=== PATIENT | female | born 1980 | race Caucasian/White ===

== ENCOUNTER 2017-03-27 18:27 | Emergency (ER) | payer OTHER ==
[2017-03-27 19:07] LABS: BASO # 0.1 10_X3_uL (0.0-0.1); BASO % 0.4 % (0.1-1.2); EOS # 0.1 10_X3_uL (0.0-0.4); EOS % 0.7 % (0.7-5.8); GRAN # 8.9 10_X3_uL (1.6-6.1); GRAN % 77.6 % (34.0-71.1); HEMATOCRIT 34.6 % (34-45); HEMOGLOBIN 11.7 g/dL (11.2-15.7); LYMPH # 1.5 10_X3_uL (1.2-3.7); LYMPH % 13.4 % (19.3-51.7); MEAN CORPUSCULAR HEMOGLOBIN 29.8 pg (27.0-33.0); MEAN CORPUSCULAR HGB CONC 33.8 g/dL (32.0-36.0); MEAN PLATELET VOLUME 9.6 fl (7.5-11.5); MONO # 0.9 10_X3_uL (0.2-0.9); MONO % 7.9 % (4.7-12.5); PLATELET COUNT 390 x10_3/uL (182-369); RED BLOOD COUNT 3.93 x10_6/uL (3.9-5.2); RED CELL DISTRIBUTION WIDTH 13.1 % (11.7-14.4); WHITE BLOOD COUNT 11.5 x10_3/uL (4.0-10.0)
[2017-03-27 19:25] LABS: ALKALINE PHOSPHATASE 70 U/L (50-136); ALT/SGPT 16 U/L (3.5-33.9); AMYLASE 37 U/L (15.62-74.58); AST/SGOT 13 U/L (7.04-26.96); BLOOD UREA NITROGEN 9 mg/dL (7-18); CALCIUM 9.3 mg/dL (8.7-10.7); CARBON DIOXIDE 24 mmol/L (21-32); CREATINE KINASE 79 U/L (21-215); CREATININE 0.6 mg/dL (0.6-1.3); GLUCOSE,RANDOM 129 mg/dL (70-99); LIPASE 30 U/L (6.75-60.75); POTASSIUM 3.7 mmol/L (3.5-5.1); SODIUM 134 mmol/L (136-145); TOTAL PROTEIN 7.2 gm/dL (6.4-8.2)
[2017-03-27 19:26] LABS: BILIRUBIN,TOTAL < 0.15 mg/dL (0.0-1.0)
== END 2017-03-27 20:32 | disposition home or self-care (01) ==
LOC: ER 18:27
PROVIDERS: Internal Medicine
DX: R42 Dizziness and giddiness (principal); R10.9 Unspecified abdominal pain; R11.0 Nausea; F32.9 Major depressive disorder, single episode, unspecified; G35 Multiple sclerosis; Z88.0 Allergy status to penicillin; Z88.2 Allergy status to sulfonamides; Z79.899 Other long term (current) drug therapy; Z79.3 Long term (current) use of hormonal contraceptives
CPT/HCPCS: 36415; 80053; 82150; 82550; 82553; 83690; 85025; 93005; 96374; 99070; 99284-25